=== PATIENT | female | born 1985 | race Caucasian/White ===

== ENCOUNTER → 2019-10-23 | Outpatient (CLI) | payer BC ==
[~2019-10-23] MED LIST: CLARITIN 1010 MG/TAB PO; NORCO 325 MG-51 TAB PO; YAZ 28 3 MG-0.01 TAB PO; ZOFRAN ODT4 MG PO
== END ==
LOC: COL.PUL 12:44
DX: R06.02 Shortness of breath (principal)
CPT/HCPCS: J7674

== ENCOUNTER 2021-03-07 09:45 | Outpatient (RCR) | payer BC | END 2021-04-17 | disposition home or self-care (01) | LOC: WSST | DX: R49.0 Dysphonia (principal); R05.9 Cough, unspecified; J38.7 Other diseases of larynx ==